=== PATIENT | female | born 1950 | race Caucasian/White ===

== ENCOUNTER 2023-03-08 08:21 | Emergency (ER) | payer MEDICARE, OTHER ==
[~2023-03-08] VITALS: Ht 165.1 cm; Wt 106.6 kg
[2023-03-08] MEDS ORDERED: IBUPROFEN 600 MG TAB PO STA (08:38)
[2023-03-08] MEDS ORDERED: TETANUS/DIPHTHERIA TOX ADULT 0.5 ML SYR IM ONE (08:45)
[2023-03-08] MEDS ORDERED: IBUPROFEN 600 MG TAB ONE (09:09)
[2023-03-08] MEDS ORDERED: TETANUS/DIPHTHERIA TOX ADULT 0.5 ML SYR ONE (09:09)
[2023-03-08] MEDS ORDERED: ACETAMINOPHEN 325 MG TAB ONE (09:12)
[2023-03-08] MEDS ORDERED: ACETAMINOPHEN 325 MG TAB PO ONE (10:00)
== END 2023-03-08 10:00 | disposition home or self-care (01) ==
LOC: FSED 08:29
DX: S00.83XA Contusion of other part of head, initial encounter (principal); S20.214A Contusion of middle front wall of thorax, initial encounter; S60.222A Contusion of left hand, initial encounter; S60.221A Contusion of right hand, initial encounter; W01.0XXA Fall on same level from slipping, tripping and stumbling without subsequent striking against object, initial encounter; Y93.01 Activity, walking, marching and hiking; Y92.89 Other specified places as the place of occurrence of the external cause; R91.1 Solitary pulmonary nodule; Z98.84 Bariatric surgery status
CPT/HCPCS: 70486; 71250; 90471; 90714; 99283